=== PATIENT | male | born 1990 | race Asian ===

== ENCOUNTER 2019-05-24 13:20 | Emergency (ER) | payer OTHER ==
[~2019-05-24] VITALS: Ht 180.3 cm; Wt 95.5 kg
[2019-05-24 14:40] VITALS: BP 155/85
== END 2019-05-24 15:30 | disposition home or self-care (01) ==
LOC: EMS 13:20
DX: J40 Bronchitis, not specified as acute or chronic (principal); F17.210 Nicotine dependence, cigarettes, uncomplicated
CPT/HCPCS: 99406